=== PATIENT | male | born 1985 | race Caucasian/White ===

== ENCOUNTER 2019-07-05 16:34 | Emergency (ER) | payer OTHER, SELFPAY ==
[2019-07-05 16:44] VITALS: BP 124/64; PULSE 71; RESP 16; TEMP 37.3; O2SAT 99
--- NOTE | 2019-07-05 16:45 | ED.GENADULT ---
HPI - General Adult General Chief complaint: Skin/Abscess/Foreign Body Stated complaint: pos staph infection Time Seen by Provider: 07/05/19 16:46 Source: patient and RN notes reviewed Mode of arrival: ambulatory Limitations: no limitations History of Present Illness HPI narrative: This is a 34 years old male presents to the office for an evaluation of possible staph infection of his right arm. State, he noticed a small pimple after shaving; which he admits to squeezing it. And the following day he noticed some redness, with painful to touch and warm. Denies fever, vomiting, or diarrhea. Denies history of MRSA. He admits to cleaning it with peroxide and use Lidocaine gel to help with pain. He is an ex heroin user; currently going through drug rehap. Related Data Home Medications Medication Instructions Recorded Confirmed bupropion HCl [Wellbutrin XL] 300 mg PO QAM 05/04/19 07/05/19 fluoxetine [Prozac] 80 mg PO DAILY 05/04/19 07/05/19 montelukast 10 mg PO DAILY 05/04/19 07/05/19 propranolol 10 mg PO DAILY 05/04/19 07/05/19 trazodone 100 mg PO HS PRN 05/04/19 07/05/19 naltrexone microspheres [Vivitrol] 380 mg IM MONTHLY 07/05/19 07/05/19 Allergies Allergy/AdvReac Type Severity Reaction Status Date / Time No Known Allergies Allergy Verified 07/05/19 16:38 Review of Systems Review of Systems: Narrative: CONSTITUTIONAL: Denies fever or feeling ill CARDIOVASCULAR: Denies chest pain RESPIRATORY: Denies dyspnea GASTROINTESTINAL: Denies abdominal pain, nausea, vomiting SKIN: Reports painful lesions with redness, swelling and warmth NEUROLOGIC: Denies lightheaded PMFSH Past Medical History Medical History Anxiety Asthma Depression Overdose Panic disorder Previous known suicide attempt Surgical History Surgical History Hx of tonsillectomy Social History Social History Alcohol intake: former Substance use: current Substance use type: other Other substance usage details: Fentanyl, H/O methamphetamine abuse Last use: today Gender identity (if verbalized by the patient): Male Comments At time of signature, I agree with nursing past medical, surgical, social and family history. There is no relevant family history pertinent to the presenting complaint. Exam Narrative: Exam Narrative: GENERAL: This is a well-nourished, well-developed patient, in no apparent distress. CARDIOVASCULAR: Regular rate and rhythm without murmurs, gallops, or rubs. RESPIRATORY: Clear to auscultation. Breath sounds equal bilaterally. No wheezes, rales, or rhonchi. GASTROINTESTINAL: Abdomen soft, non-tender, nondistended. Bowel sounds are active. No hepato-splenomegaly, or palpable masses. No guarding. SKIN: Right anterior forearm noted small tender nodule with erythema, warmth with clear demarcation. No lymphmandenitis. NEURO: awake, alert, and oriented to person, place and time. There were no obvious focal neurologic abnormalities. Steady gait [place] Coma Scale Eye Opening: Spontaneous 4 [place] Coma Scale Motor: Obeys Commands 6 [place] Coma Scale Verbal: Oriented 5 Medical Decision Making MDM Narrative Medical decision making narrative: Discharge instructions reviewed with patient, as well as provided in writing per nursing staff. The instructions also include specific and strict return/GO TO THE ER as well as f/u information. All questions have been answered, and the patient* deny any further questions with discharge and discharge plan. Differential Diagnosis Differential Diagnosis: Contact/allergic dermatitis, eczema, cellulitis, insect bite, drug eruption Critical Care Time Critical Care Time Critical Care Time: No Discharge Plan Discharge Clinical Impression: Cellulitis Patient Disposition: Home, Self-Care Condition: Stable Inst
[2019-07-05] MEDS: TETANUS,DIPHTHERIA,AC PERTUSSIS ADULT 0.5 ML (ADACEL) IM (16:57)
== END 2019-07-05 17:18 | disposition home or self-care (01) ==
PROVIDERS: Emergency Provider Nurse Practitioner
DX: L03.113 Cellulitis of right upper limb (principal); Z23 Encounter for immunization; F41.9 Anxiety disorder, unspecified; F32.9 Major depressive disorder, single episode, unspecified; J45.909 Unspecified asthma, uncomplicated
CPT/HCPCS: 90471; 90715; 99213; G0463

== ENCOUNTER 2019-07-09 16:42 | Emergency (ER) | payer OTHER, SELFPAY ==
[2019-07-09 16:48] VITALS: BP 145/78; PULSE 88; RESP 20; TEMP 36.1; O2SAT 100
--- NOTE | 2019-07-09 17:48 | ED.GENADULT ---
HPI - General Adult General Chief complaint: Skin/Abscess/Foreign Body Stated complaint: right arm cellulitis/ on op abx Time Seen by Provider: 07/09/19 16:46 Source: patient Mode of arrival: ambulatory Limitations: no limitations History of Present Illness HPI narrative: Patient is a 34-year-old male who presents with wound to the right forearm has been to urgent care and primary care for this is been present now for a week patient has red tender swollen lesion to the distal forearm patient notes despite the 3 antibiotics he is currently on the wound is not getting better also notes that he is developed rash and starting the new antibiotics patient denies any fever chills nausea vomiting Related Data Home Medications Medication Instructions Recorded Confirmed bupropion HCl [Wellbutrin XL] 300 mg PO QAM 05/04/19 07/05/19 fluoxetine [Prozac] 80 mg PO DAILY 05/04/19 07/05/19 montelukast 10 mg PO DAILY 05/04/19 07/05/19 propranolol 10 mg PO DAILY 05/04/19 07/05/19 trazodone 100 mg PO HS PRN 05/04/19 07/05/19 naltrexone microspheres [Vivitrol] 380 mg IM MONTHLY 07/05/19 07/05/19 Allergies Allergy/AdvReac Type Severity Reaction Status Date / Time No Known Allergies Allergy Verified 07/09/19 16:53 Review of Systems Review of Systems: All systems reviewed & are unremarkable except as noted in HPI and below PMFSH Past Medical History Medical History Anxiety Asthma Depression Overdose Panic disorder Previous known suicide attempt Surgical History Surgical History Hx of tonsillectomy Social History Social History Alcohol intake: former Substance use: current Substance use type: other Other substance usage details: Fentanyl, H/O methamphetamine abuse Last use: today Gender identity (if verbalized by the patient): Male Exam Narrative: Exam Narrative: GENERAL: Well-appearing, well-nourished, and in no acute distress. HEAD: Normocephalic, atraumatic. EYES: PERRLA and EOMI. EXTREMITIES: Normal range of motion. No edema. Patient with red tender swollen 2-1/2 cm in diameter lesion of the right distal forearm consistent with abscess with slight surrounding erythema no lymphangitic streaking SKIN: Warm, dry, no rash. NEURO: No focal deficits. Alert and oriented x3. Neurovascularly intact. Capillary refill less than 2 seconds PSYCH: Normal mood and affect. Course Course Emergency Course: Patient in the room aware of case findings treatment plan and diagnosis agreeing to follow-up as directed or to return if symptoms worsen or concerns Vital Signs Vital signs: Vital Signs Temperature 97.0 F L 07/09/19 16:48 Pulse Rate 88 07/09/19 16:48 Respiratory Rate 07/09/19 16:48 Blood Pressure 145/78 H 07/09/19 16:48 Pulse Oximetry 100 07/09/19 16:48 Temperature 97.0 F L 07/09/19 16:48 Pulse Rate 88 07/09/19 16:48 Respiratory Rate 07/09/19 16:48 Blood Pressure 145/78 H 07/09/19 16:48 Pulse Oximetry 100 07/09/19 16:48 Procedures Abscess I/D upper extremity: Date of Incision: 07/09/19 Time of Incision: 17:53 Side (if applicable): right Local Anesthetic: lidocaine 1% Technique: incised with #11 blade Amount of fluid expressed (mL): 5 Irrigation: No Packing used?: iodoform I&D Results: Pus and Blood Medical Decision Making MDM Narrative Medical decision making narrative: Patient had I&D of the abscess wound culture obtained felt appropriate for outpatient reevaluation provided with reasons to return Vital Signs Vital Signs: Vital Signs Temperature 97.0 F L 07/09/19 16:48 Pulse Rate 88 07/09/19 16:48 Respiratory Rate 07/09/19 16:48 Blood Pressure 145/78 H 07/09/19 16:48 Pulse Oximetry 100 07/09/19 16:48 Temperature 97.0 F L
== END 2019-07-09 18:14 | disposition home or self-care (01) ==
PROVIDERS: Emergency Provider Emergency Medicine
DX: L02.413 Cutaneous abscess of right upper limb (principal); J45.909 Unspecified asthma, uncomplicated; F41.9 Anxiety disorder, unspecified; F32.9 Major depressive disorder, single episode, unspecified
CPT/HCPCS: 10061; 87070; 87075; 87147; 87186; 87205; 99283

== ENCOUNTER 2019-12-25 09:01 | Emergency (ER) | payer OTHER, SELFPAY ==
[2019-12-25] VITALS (19 sets, daily range): BP systolic 130–155; BP diastolic 73–137; PULSE 90–110; RESP 12–23; TEMP 36.8; O2SAT 98–100
--- NOTE | ~2019-12-25 | XR_ITS ---
EXAMINATION: XR chest 2V DATE: 12/25/2019 09:35 INDICATION: Shortness of breath and chest tightness TECHNIQUE: PA and lateral views of the chest are obtained. COMPARISON: 05/04/2019 FINDINGS: The lungs are free of acute opacities. There is no pleural effusion or pneumothorax. The ca rdiomediastinal silhouette is normal. Healed bilateral rib fractures are noted. IMPRESSION: 1. No acute cardiopulmonary abnormality. Reviewed, dictated and finalized at location A.
--- NOTE | 2019-12-25 09:14 | ECG_ITS ---
Measurements Intervals [place] Rate: 107 P: 51 SD: 145 QRS: 47 QRSD: 102 T: 37 QT: 349 QTc: 466 Interpretive Statements SINUS TACHYCARDIA DELAYED PRECORDIAL R/S TRANSITION NONSPECIFIC ST ELEVATION- DIFFUSE LEADS BASELINE ARTIFACT- I, II, III, AVR, AVL, AVF, V3 ABNORMAL ECG Electronically Signed On 12-25-2019 12:02:17 CDT by Marvel Galindo D.O.
[2019-12-25 09:38] LABS: Basophils Absolute Auto 0.1 K/mm3 (0.0-0.1); Basophils Percent Auto 0.8 % (0.2-1.2); Eosinophils Absolute Auto 0.1 K/mm3 (0-0.3); Eosinophils Percent Auto 0.8 % (0-4.4); Hematocrit 37.6 % (42.0-52.0); Hemoglobin 12.5 g/dL (14.0-18.0); Immature Granulocyte Absolute 0.06 K/mm3 (0.00-0.031); Immature Granulocyte Percent A 0.7 % (0-0.5); Lymphocytes Absolute Auto 3.07 K/mm3 (0.9-3.2); Lymphocytes Percent Auto 36.6 % (18.3-44.2); Mean Corpuscular HGB Conc 33.2 g/dl (32-36); Mean Corpuscular Hemoglobin 25.2 pg (26-34); Mean Corpuscular Volume 75.7 fl (80-100); Mean Platelet Volume 10.4 fl (7.4-10.4); Monocytes Percent Auto 12.3 % (2.6-8.5); Neutrophils Absolute Auto 4.1 K/mm3 (1.3-6.7); Neutrophils Percent Auto 48.8 % (45.5-73.1); Nucleated Red Blood Cells Perc 0.2 % (0.0-0.2); Platelet Count Result 272 k/mm3 (150-375); Red Blood Count 4.97 M/mm3 (4.6-6.20); Red Cell Distribution Width 15.5 % (11.5-14.5); White Blood Count 8.4 K/mm3 (4.5-10.0)
[2019-12-25 09:41] LABS: Anion Gap 10 mmol/L (8-16); Blood Urea Nitrogen 21 mg/dL (9-20); Carbon Dioxide 23 mmol/L (22-30); Chloride 103 mmol/L (98-107); Estimated CRCL calculation 96 ml/min; Estimated Glomerular Filt Rate > 60; Glucose 108 mg/dL (75-110); Potassium 3.4 mmol/L (3.4-5.0); Sodium 136 mmol/L (137-145)
--- NOTE | 2019-12-25 09:48 | ED.SOB ---
HPI - SOB/Dyspnea General Chief Complaint: Shortness of Breath/Dyspnea Stated Complaint: cough, carbon monoxide alram going off Time Seen by Provider: 12/25/19 09:48 Source: patient and family Mode of arrival: ambulatory Limitations: no limitations History of Present Illness HPI Narrative: Patient is a 34-year-old male who presents for evaluation of carbon monoxide exposure, shortness of breath and cough. Patient states that he was cooking a lasagna 1 in the morning when he felt this and woke up to his carbon monoxide alarm going off and a neighbor knocking on his door. Patient is currently denying any chest pain. Patient states he does smoke cigarettes and marijuana. He denies any nausea or vomiting. No confusion. No fever. Patient states his symptoms are mostly improving. He initially had a cough and some shortness of breath but states that has much improved since he is come to the hospital. Related Data Home Medications Medication Instructions Recorded Confirmed bupropion HCl [Wellbutrin XL] 300 mg PO QAM 05/04/19 07/05/19 fluoxetine [Prozac] 80 mg PO DAILY 05/04/19 07/05/19 montelukast 10 mg PO DAILY 05/04/19 07/05/19 propranolol 10 mg PO DAILY 05/04/19 07/05/19 trazodone 100 mg PO HS PRN 05/04/19 07/05/19 naltrexone microspheres [Vivitrol] 380 mg IM MONTHLY 07/05/19 07/05/19 Allergies Allergy/AdvReac Type Severity Reaction Status Date / Time No Known Allergies Allergy Verified 12/25/19 09:01 Review of Systems Review of Systems: Narrative: CONSTITUTIONAL: Denies fever CARDIOVASCULAR: Denies chest pain RESPIRATORY: Reports cough and shortness of breath, resolved GASTROINTESTINAL: Denies abdominal pain SKIN: Denies rash MUSCULOSKELETAL: Denies back pain NEUROLOGIC: Denies headache [facility] Social History Social History Alcohol intake: former Substance use: current Substance use type: other Other substance usage details: Fentanyl, H/O methamphetamine abuse Last use: today Gender identity (if verbalized by the patient): Male Exam Narrative: Exam Narrative: GENERAL: Awake, alert, conversant HEAD: Normocephalic, atraumatic. EYES: PERRLA and EOMI. ENT: Nares clear, no rhinorrhea or epistaxis. Mucous membranes moist. NECK: Supple. CHEST: No respiratory distress, breathing even and non labored HEART: Regular rate, sinus rhythm ABDOMEN:Non distended, non tender EXTREMITIES: Normal range of motion. No edema. SKIN: Warm, dry, no rash. NEURO:No focal deficits. Alert and oriented x3 Course Vital Signs Vital signs: Vital Signs Temperature 36.8 C 12/25/19 09:06 Pulse Rate 110 H 12/25/19 09:06 Respiratory Rate 18 12/25/19 09:06 Blood Pressure 155/94 H 12/25/19 09:06 Pulse Oximetry 98 12/25/19 09:06 Temperature 36.8 C 12/25/19 09:06 Pulse Rate 95 12/25/19 10:30 Respiratory Rate 17 12/25/19 10:30 Blood Pressure 138/105 H 12/25/19 10:24 Pulse Oximetry 99 12/25/19 10:30 MDM - SOB/Dyspnea MDM Narrative Medical decision making narrative: Patient presenting for evaluation of cough and shortness of breath related to what seems to be a carbon monoxide exposure. At the time of assessment, ABCs are intact and vital signs are stable. Physical exam is reassuring. Patient was placed on high flow nasal cannula oxygen and his ABG is reassuring with carboxyhemoglobin level of 2.4%. Patient is a smoker, this level is not greater than 5%, patient is not having any more cough, shortness of breath, disorientation, no nausea or vomiting. No signs of severe carbon monoxide poisoning that patient will warrant repeat laboratory studies or transfer for hyperbaric therapy. As patient is feeling much improved and back to baseline, we will discharge him home. Differential Diagnosis Differential diagnosis: Likely acute exacerbation of chronic obstructive airways disease, asthma with exacerbation and other (Carbon monoxide exposure) Lab
--- NOTE | 2019-12-25 09:50 | PC.NURSE ---
Pt. spCO% was 5%. EDP notified. Per EDP via verbal order readback place Pt. on 5L of O2 via nasal cannula.
[2019-12-25 10:08] LABS: Alveolar/Arterial O2 Gradient 109.3 mmHg; Base Excess ABG -0.6 mEq/l (+/-2.0); Carboxyhemoglobin 2.4 % THb (0-2.0); Fractional Inspired Oxygen 40 %; HCO3 ABG 20.9 mEq/l (22.0-26.0); Methemoglobin ABG 0.1 %THb (0-1.5); Oxygen Content ABG 17.4 %vol (16.0-22.0); Oxygen Saturation ABG 99.1 % (95.0-100.0); PO2 FiO2 Ratio Arterial Blood 3.65 %; Reduced Hemoglobin 1.5 %THb (0-5.0); Total Hemoglobin 12.7 g/dL (12.0-18.0)
[2019-12-25 10:09] LABS: pH ABG 7.523 (7.350-7.450)
[2019-12-26 09:49] LABS: Device NASAL CANNULA; Modified Allen's Test Pass; Site Drawn RIGHT RADIAL
== END 2019-12-25 10:55 | disposition home or self-care (01) ==
PROVIDERS: Emergency Provider Emergency Medicine; PCP Family Medicine Sports Medicine
DX: R05 Cough (principal); R06.02 Shortness of breath; T58.11XA Toxic effect of carbon monoxide from utility gas, accidental (unintentional), initial encounter
CPT/HCPCS: 36415; 36600; 71046; 80048; 82375; 82805; 83050; 85025; 93005; 99284

== ENCOUNTER 2022-01-19 18:07 | Emergency (ER) | payer OTHER, SELFPAY ==
[2022-01-19] VITALS (12 sets, daily range): BP systolic 133–162; BP diastolic 85–99; PULSE 53–93; RESP 14–36; TEMP 36.6; O2SAT 97–100
--- NOTE | ~2022-01-19 | XR_ITS ---
EXAMINATION: XR chest 2V Exam Date/Time: 01/19/2022 20:10 CDT HISTORY: cp, sob, dizziness Comparison: 12/25/2019. RESULT: Lines, tubes, and devices: None. Lungs and pleura: Clear. Cardiomediastinal silhouette: Stable. Other: No acute osseous or upper abdominal finding. IMPRESSION: No acute cardiopulmonary process. Reviewed, dictated and finalized at location K.
[2022-01-19 18:12] LABS: Glucose Point of Care 117 mg/dl (65-105)
--- NOTE | 2022-01-19 18:16 | ED.NAVMDI ---
HPI - Nausea/Vomiting/Diarrhea General Chief complaint: Nausea/Vomiting/Diarrhea Stated complaint: N/V Source: patient Mode of arrival: EMS Limitations: no limitations History of Present Illness HPI Narrative: Patient is a 36-year-old male who presents to the ED via EMS with multiple complaints. Patient reports he was moving furniture today around 45 minutes prior to arrival and felt like he needed to sit down to take a break. He then began feeling sweaty, dizzy, nauseous. He then began having sharp midsternal chest pain and shortness of breath. He had three episodes of NBNB emesis at which point EMS was called. Patient has a hx of anxiety with panic attacks but states this felt different. He is reporting nausea and shortness of breath currently, but denies any current dizziness, lightheadedness, chest pain, headache, abdominal pain, cough, cold symptoms, fever. Per EMS, patient's blood sugar was 67 upon their arrival. 117 upon arrival to the ED. Patient states he did eat lunch and drank water today. Related Data Home Medications Medication Instructions Recorded Confirmed bupropion HCl 300 mg 24 hr tablet, 300 mg PO QAM 05/04/19 07/05/19 extended release (Wellbutrin XL) fluoxetine 40 mg capsule (Prozac) 80 mg PO DAILY 05/04/19 07/05/19 montelukast 10 mg tablet 10 mg PO DAILY 05/04/19 07/05/19 propranolol 10 mg tablet 10 mg PO DAILY 05/04/19 07/05/19 trazodone 100 mg tablet 100 mg PO HS PRN Anxiety 05/04/19 07/05/19 naltrexone microspheres 380 mg 380 mg IM MONTHLY 07/05/19 07/05/19 intramuscular suspension,extended release (Vivitrol) Allergies Allergy/AdvReac Type Severity Reaction Status Date / Time No Known Allergies Allergy Verified 01/19/22 18:08 Review of Systems Review of Systems: CONSTITUTIONAL: Reports diaphoresis. Denies fever. EYES: Denies visual changes. CARDIOVASCULAR: Reports midsternal chest pain. RESPIRATORY: Reports SOB. Denies cough. GASTROINTESTINAL: Reports N/V. Denies abdominal pain. NEUROLOGIC: Reports dizziness. Denies headache, numbness, or weakness. All systems reviewed & are unremarkable except as noted in HPI and below PMFSH Past Medical History Medical History Anxiety Asthma Depression Overdose Panic disorder Previous known suicide attempt Surgical History Surgical History (Updated 01/19/22 @ 18:45 by Guillermina Morris PA-C) History of shoulder surgery Hx of tonsillectomy Social History Social History Alcohol intake: former Substance use: current Substance use type: other Other substance usage details: Fentanyl, H/O methamphetamine abuse Last use: today Gender identity (if verbalized by the patient): Male Exam Narrative: GENERAL: Well appearing, well-nourished, non-toxic, in no acute distress. HEAD: Normocephalic, atraumatic. EYES: PERRL/EOMI, conjunctivae clear bilaterally. NECK: Supple. No adenopathy, no masses. RESPIRATORY: Airway patent, respirations nonlabored. Clear to auscultation bilaterally, no rales, rhonchi, wheezing. CARDIOVASCULAR: Regular rate and rhythm without murmurs, rubs, or gallops. Peripheral pulses 2+ and equal bilaterally. ABDOMINAL: Soft, no significant tenderness to palpation, nondistended, no hepatosplenomegaly. Normoactive BS. MUSCULOSKELETAL: Moves all extremities. Strength/ROM intact without gross deformities. No chest wall tenderness to palpation. SKIN: Warm, dry, normal color. No rashes. NEURO: A&O X3. Speech clear. Cranial nerves II-XII grossly intact. Steady gait. No ataxic movements. Strength 5/5 in upper and lower extremities bilaterally. Equal glass tube bender strengths bilaterally. PSYCHIATRIC: Anxious. Normal interaction. Course Vital Signs Vital signs: Vital Signs Temperature 97.8 F 01/19/22 18:04 Pulse Rate 74 01/19/22 18:04 Respiratory Rate 36 H 01/19/22 18:04 Blood Pressure 160/92 H 01/19
[2022-01-19 18:20] LABS: Basophils Absolute Auto 0.1 K/mm3 (0.0-0.1); Basophils Percent Auto 0.8 % (0.2-1.2); Eosinophils Absolute Auto 0.1 K/mm3 (0-0.3); Eosinophils Percent Auto 0.9 % (0-4.4); Hematocrit 40.6 % (42.0-52.0); Immature Granulocyte Absolute 0.11 K/mm3 (0.00-0.031); Lymphocytes Absolute Auto 3.78 K/mm3 (0.9-3.2); Lymphocytes Percent Auto 32.7 % (18.3-44.2); Mean Corpuscular Hemoglobin 22.1 pg (26-34); Mean Corpuscular Volume 69.2 fl (80-100); Mean Platelet Volume 10.3 fl (7.4-10.4); Monocytes Percent Auto 8.6 % (2.6-8.5); Neutrophils Absolute Auto 6.5 K/mm3 (1.3-6.7); Platelet Count Result 392 k/mm3 (150-375); Red Blood Count 5.87 M/mm3 (4.6-6.20); Red Cell Distribution Width 19.1 % (11.5-14.5); White Blood Count 11.6 K/mm3 (4.5-10.0)
--- NOTE | 2022-01-19 18:27 | ECG_ITS ---
Measurements Intervals [place] Rate: 53 P: 20 IN: 166 QRS: 35 QRSD: 102 T: 24 QT: 425 QTc: 401 Interpretive Statements SINUS BRADYCARDIA COMPARED TO ECG 12/25/2019 09:12:27 SINUS BRADYCARDIA NOW PRESENT Electronically Signed On 01-20-2022 17:23:38 CDT by Vidal Roque M.D.
[2022-01-19 18:29] LABS: Platelet Estimate Increased (Adequate)
[2022-01-19 18:30] LABS: Microcytosis 1+ (NORMAL); Ovalocytes 1+ (NORMAL); Target Cells 1+ (NORMAL)
[2022-01-19 18:31] LABS: Schistocytes None Seen (NORMAL)
[2022-01-19 18:33] LABS: Alanine Aminotransferase 26 U/L (6-50); Albumin Level 5.3 g/dL (3.5-5.1); Alkaline Phosphatase 121 U/L (38-126); Anion Gap 14 mmol/L (8-16); Aspartate Amino Transferase 36 U/L (17-59); Bilirubin,Total 0.9 mg/dL (0.2-1.3); Blood Urea Nitrogen 18 mg/dL (9-20); Calcium 10.4 mg/dL (8.4-10.2); Carbon Dioxide 21 mmol/L (22-30); Chloride 103 mmol/L (98-107); Estimated CRCL calculation 65 ml/min; Estimated Glomerular Filt Rate > 60; Glucose 96 mg/dL (65-110); Lipase 141 U/L (23-300); Potassium 4.1 mmol/L (3.4-5.0); Sodium 138 mmol/L (137-145)
[2022-01-19] MEDS: ONDANSETRON INJ 4 MG/2 ML VIAL IV PUSH (18:47)
[2022-01-19] MEDS: SODIUM CHLORIDE 0.9% IV 1,000 ML 999 ML IV CONT ×2 (18:47→21:17)
[2022-01-19 20:28] LABS: Troponin I < 0.012 ng/mL (0.000-0.034)
[2022-01-19 20:29] LABS: Appearance Urine Cloudy (Clear); Bilirubin Urine Negative (Negative); Blood Urine Negative (Negative); Color Urine Yellow (Yellow); Glucose Urine UA Negative (Negative); Ketones Urine 4+ mg/dL (Negative); Leukocyte Esterase Ur Negative LEU/UL (Negative); Nitrate Urine Negative (Negative); Protein Urine 1+ mg/dL (Negative); pH Urine >=9.0 (5.0-9.0)
[2022-01-19 20:34] LABS: Bacteria Urine Trace /hpf; Mucus Urine Moderate /lpf; RBC Urine 0-2 /hpf (0-2)
[2022-01-19 20:37] LABS: Add Urine Microscopic? YES
[2022-01-19 20:57] LABS: Glucose Point of Care 87 mg/dl (65-105)
[2022-01-19 21:46] LABS: Troponin I < 0.012 ng/mL (0.000-0.034)
== END 2022-01-19 23:40 | disposition home or self-care (01) ==
PROVIDERS: Physician Assistant; Emergency Provider General Practice; PCP Family Medicine Sports Medicine
DX: R11.2 Nausea with vomiting, unspecified (principal); E86.0 Dehydration; J45.909 Unspecified asthma, uncomplicated; F41.9 Anxiety disorder, unspecified; F32.A Depression, unspecified
CPT/HCPCS: 36415; 71046; 80053; 81001; 82948; 83690; 84484; 85025; 93005; 96361; 96374; 99284; J2405; J7030